=== PATIENT | female | born 1950 | race African-American/Black ===

== ENCOUNTER 2016-02-23 21:51 | Emergency (ER) | payer MEDICARE, MEDICAID ==
[2016-02-23] MEDS ORDERED: OPTIRAY 350 100 ML VIAL HMH IV ONE (21:52)
[2016-02-24] MEDS ORDERED: ONDANSETRON 4 MG VIAL ONE (00:50)
[2016-02-24] MEDS ORDERED: MORPHINE 4 MG/ML SYR ONE (00:50)
[2016-02-24] MEDS ORDERED: SODIUM CHLORIDE 0.9% 1,000 ML ONE (02:54)
== END 2016-02-24 05:03 | disposition home or self-care (01) ==
LOC: ER 21:51
DX: K59.00 Constipation, unspecified (principal)
CPT/HCPCS: 36415; 71260; 74176; 80053; 81001; 83690; 85025; 87088; 96361; 96374; 96375; 99284; J2270; J2405; Q9967